=== PATIENT | female | born 1990 | race Caucasian/White ===

== ENCOUNTER → 2020-07-25 12:15 | Outpatient (BNVA) | payer OTHER, SELFPAY | PROVIDERS: PCP Internal Medicine; Visit Provider Dietitian, Registered | DX: E66.3 Overweight (principal); Z68.25 Body mass index [BMI] 25.0-25.9, adult | CPT/HCPCS: 97802 ==

== ENCOUNTER 2023-12-31 21:21 | Emergency (ER) | payer SELFPAY ==
--- NOTE | ~2023-12-31 | CT_ITS ---
EXAMINATION: CT ABDOMEN AND PELVIS WITH CONTRAST CLINICAL INFORMATION: Right upper quadrant pain. Biliary colic. COMPARISON: None available. TECHNIQUE: Multidetector volumetric images were obtained from the superior aspect of the liver through the pubic symphysis following administration 85 mL of Omnipaque 350 intravenous contrast. Sagittal and coronal reformatted images were obtained on the technologist's workstation. Oral contrast: No This CT examination was performed using dose optimization techniques as appropriate, variously including the following: *Automated exposure control *Adjustment of mA and/or kV according to patient size (this includes techniques or standardized protocols for targeted exams where dose is matched to indication/reason for exam; i.e. extremities or head) *Use of iterative reconstruction technique DLP: 622 mGy-cm FINDINGS: LUNG BASES: The visualized lung bases are unremarkable. LIVER, GALLBLADDER, AND BILIARY TREE: The liver is normal in size, shape, and attenuation. No focal hepatic lesion or biliary ductal dilatation is present. The gallbladder wall demonstrates mildly conspicuous submucosal in enhancement. No pericholecystic fluid collections noted. No cholelithiasis visualized. No biliary duct dilatation noted. PANCREAS: Unremarkable. SPLEEN: Incidental 6 mm rounded low-density focus within the inferior margin of the spleen which is overwhelmingly likely to be benign, possibly a hemangioma. ADRENAL GLANDS: Unremarkable. KIDNEYS AND URETERS: Single 6 mm x 4 mm nonobstructing calculus within the interpolar segment of the left kidney. No additional urolithiasis. Bilateral symmetric nephrographic enhancement. BLADDER: Unremarkable. GASTROINTESTINAL TRACT: Normal appearance of the appendix (series 7 image 25). Trace free intraperitoneal fluid within the pelvic cul-de-sac which is likely physiologic. No free intraperitoneal gas. Normal appearance of the stomach and duodenum. ABDOMINAL WALL: No significant hernia is appreciated. LYMPH NODES: Normal. VASCULAR: Unremarkable. PELVIC VISCERA: Intrauterine device is noted. No adnexal lesions visualized. Left gonadal vein measures 8 mm in diameter. A 2.5 cm diameter unilocular-appearing cyst is noted in the anterolateral aspect of the superior portion of the vagina and is suspicious for a Rach duct cyst. No adjacent inflammatory changes. OSSEOUS STRUCTURES: Unremarkable. CT/CT abdomen pelvis w IV con IMPRESSION: 1. Mildly conspicuous submucosal enhancement of the gallbladder wall. No cholelithiasis. No biliary duct dilatation. Findings are mildly suspicious for acute cholecystitis. Consider further evaluation with right upper quadrant ultrasound as clinically indicated. 2. Single 6 mm nonobstructing calculus within the interpolar segment of the left kidney. No additional urolithiasis. 3. Normal appendix. 4. Intrauterine device in place. 5. 2.5 cm unilocular-appearing cyst within the vagina suspicious for a Rach duct cyst. No adjacent inflammatory changes. 6. Ectatic left gonadal vein measuring 8 mm in diameter. In the correct clinical setting, findings could correlate with left-sided pelvic congestion syndrome. Electronically signed by: Get Ralph MD 01/01/2024 01:49 AM EDT
[2023-12-31 21:30] VITALS: BP 114/72; BP 116/78; PULSE 69; PULSE 76; RESP 18; TEMP 36.9; O2SAT 100; O2SAT 97; BMI 25.1
[2023-12-31 21:54] LABS: MANUAL DIFF FLAG NO
[2023-12-31 21:56] LABS: Basophils Percent Auto 0.6 % (0-2); Eosinophils Absolute Auto 0.2 X10*3/uL (0.0-0.4); Hematocrit 37.2 % (37.0-47.0); Hemoglobin 12.4 g/dl (12.0-16.0); Imm Gran Abs Auto 0.05 X10*3/uL (0.00-0.03); Imm Gran Pct Auto 0.8 % (0.0-0.4); Lymphocytes Percent Auto 30.5 % (20-40); Mean Corpuscular HGB Conc 33.3 g/dl (31.0-35.0); Mean Corpuscular Hemoglobin 28.7 pg (27.0-33.0); Mean Corpuscular Volume 86.1 fL (80.0-98.0); Mean Platelet Volume 10.1 fL (9.4-12.3); Monocytes Absolute Auto 0.4 X10*3/uL (0.1-1.2); Monocytes Percent Auto 6.1 % (2-11); Neutrophils Absolute Auto 3.8 x10*3/uL (2.0-8.3); Platelet Count 214 X10*3/uL (160-400); Red Blood Count 4.32 X10*6/uL (4.20-5.50); Red Cell Distribution Width 12.2 % (11.0-16.0); White Blood Count 6.4 X10*3/uL (4.8-10.8)
[2023-12-31 22:16] LABS: Alanine Aminotransferase 24 U/L (0-31); Albumin Level 3.7 g/dL (3.5-5.0); Alkaline Phosphatase 55 U/L (39-117); Anion Gap 8 (12-20); Aspartate Amino Transferase 17 U/L (5-31); Bilirubin Total 0.4 mg/dL (0.0-1.0); Blood Urea Nitrogen 13 mg/dL (9-16); C Reactive Protein 0.17 mg/dL (< or = 0.50); Calcium 8.3 mg/dL (8.4-10.2); Carbon Dioxide 27 mmol/L (22-29); Chloride 109 mmol/L (96-108); Estimated Glomerular Filt Rate > 60; Glucose Random 94 mg/dL (60-115); Lipase 24 U/L (8-78); Potassium 3.8 mmol/L (3.3-5.1); Sodium 140 mmol/L (135-145)
[2023-12-31 22:18] LABS: HCG Quantitative < 2 mIU/mL
[2024-01-01] MEDS: 0.9 % Sodium Chloride 1,000 ML 999 ML IV (00:41)
[2024-01-01] MEDS: iohexoL 350 MG/ML 100 ML INFUS..BTL 85 ML IV (00:52)
--- NOTE | 2024-01-01 01:31 | ED_ITS ---
HPI - Abdominal Pain General Chief Complaint: Abdominal Pain Stated Complaint: abd pain Time Seen by Provider: 12/31/23 23:52 Source: patient Limitations: no limitations History of Present Illness ED Provider: Liliya Garay PA-C Related Data Allergies Allergy/AdvReac Type Severity Reaction Status Date / Time No Known Allergies Allergy Verified 12/31/23 21:42 [facility] Social History Social History Alcohol intake: current Alcohol intake frequency: holidays/special occasions only Smoked in Last 30 Days: No Use of substances other than those prescribed or required for medical reasons: No Advance Directives: No Advance Directives Information Provided: No Patient : No Physical Exam ED Vital Signs: Vital Signs - 24 hr 12/31/23 21:30 Temperature 98.4 F Pulse Rate 69 Respiratory Rate 18 Blood Pressure 114/72 Pulse Oximetry 97 Oxygen Delivery Method Room Air BMI result Body Mass Index 25.1 Medical Decision Making Medical Decision Making MDM Narrative: No relevant chronic issues History: Per patient I have considered the following differential diagnoses: Biliary colic, cholecystitis, gastritis, GERD, pancreatitis Plan: Screening labs were obtained from triage. Given distribution of the patient's discomfort, I am considering biliary versus gastric versus pancreatic etiology as cause for symptoms. I definitely do not think she has cholecystitis, her abdominal exam at this time is completely benign, her LFTs are normal. Doubtful to be pancreatitis, her lipase is normal and again, abdominal exam is unremarkable. This could be poorly controlled GERD/gastritis. Given the transient pain and nausea, this could be biliary colic. We do not have the capability to obtain an ultrasound, therefore I am obtaining a CT scan. We will give IV fluid. Again, the patient is currently asymptomatic. I have independently reviewed the following tests: Labs: No leukocytosis, not anemic, no electrolyte abnormality, LFTs are normal, lipase elevated, not CT abdomen and pelvis: CT ABDOMEN AND PELVIS WITH CONTRAST CLINICAL INFORMATION: Right upper quadrant pain. Biliary colic. COMPARISON: None available. TECHNIQUE: Multidetector volumetric images were obtained from the superior aspect of the liver through the pubic symphysis following administration 85 mL of Omnipaque 350 intravenous contrast. Sagittal and coronal reformatted images were obtained on the technologist's workstation. Oral contrast: No This CT examination was performed using dose optimization techniques as appropriate, variously including the following: *Automated exposure control *Adjustment of mA and/or kV according to patient size (this includes techniques or standardized protocols for targeted exams where dose is matched to indication/reason for exam; i.e. extremities or head) *Use of iterative reconstruction technique DLP: 622 mGy-cm FINDINGS: LUNG BASES: The visualized lung bases are unremarkable. LIVER, GALLBLADDER, AND BILIARY TREE: The liver is normal in size, shape, and attenuation. No focal hepatic lesion or biliary ductal dilatation is present. The gallbladder wall demonstrates mildly conspicuous submucosal in enhancement. No pericholecystic fluid collections noted. No cholelithiasis visualized. No biliary duct dilatation noted. PANCREAS: Unremarkable. SPLEEN: Incidental 6 mm rounded low-density focus within the inferior margin of the spleen which is overwhelmingly likely to be benign, possibly a hemangioma. ADRENAL GLANDS: Unremarkable. KIDNEYS AND URETERS: Single 6 mm x 4 mm nonobstructing calculus within the interpolar segment of the left kidney. No additional urolithiasis. Bilateral symmetric nephrographic enhancement. BLADDER: Unremarkable. GASTROINTESTINAL TRACT: Normal appearance of the appendix (series 7 image 25). Trace free intraperitoneal fluid within the pelvic cul-de-sac which is likely physiologic. No free intraperitoneal gas. Normal appearance of the stomach and duodenum. ABDOMINAL WALL: No significant hernia is appreciated. LYMPH NODES: Normal. VASCULAR: Unremarkable. PELVIC VISCERA: Intrauterine device is noted. No adnexal lesions visualized. Left gonadal vein measures 8 mm in diameter. A 2.5 cm diameter unilocular-appearing cyst is noted in the anterolateral aspect of the superior portion of the vagina and is suspicious for a Rach duct cyst. No adjacent inflammatory changes. OSSEOUS STRUCTURES: Unremarkable. CT/CT abdomen pelvis w IV con IMPRESSION: 1. Mildly conspicuous submucosal enhancement of the gallbladder wall. No cholelithiasis. No biliary duct dilatation. Findings are mildly suspicious for acute cholecystitis. Consider further evaluation with right upper quadrant ultrasound as clinically indicated. 2. Single 6 mm nonobstructing calculus within the interpolar segment of the left kidney. No additional urolithiasis. 3. Normal appendix. 4. Intrauterine device in place. 5. 2.5 cm unilocular-appearing cyst within the vagina suspicious for a Rach duct cyst. No adjacent inflammatory changes. 6. Ectatic left gonadal vein measuring 8 mm in diameter. In the correct clinical setting, findings could correlate with left-sided pelvic congestion syndrome. Electronically signed by: Get Ralph MD 01/01/2024 01:49 AM EDT Lab Data 12/31/23 21:49 12/31/23 21:49 Labs: Lab Results 12/31/23 Range/Units 21:49 WBC 6.4 (4.8-10.8) X10*3/uL RBC 4.32 (4.20-5.50) X10*6/uL Hgb 12.4 (12.0-16.0) g/dl Hct 37.2 (37.0-47.0) % MCV 86.1 (80.0-98.0) fL MCH 28.7 (27.0-33.0) pg MCHC 33.3 (31.0-35.0) g/dl RDW 12.2 (11.0-16.0) % Plt Count 214 (160-400) X10*3/uL MPV 10.1 (9.4-12.3) fL Immature Gran % (Auto) 0.8 H (0.0-0.4) % Neut % (Auto) 59.0 (45-73) % Lymph % (Auto) 30.5 (20-40) % Clark % (Auto) 6.1 (2-11) % Eos % (Auto) 3.0 (0-4) % Baso % (Auto) 0.6 (0-2) % Lymph # (Auto) 2.0 (1.2-4.9) X10*3/uL Clark # (Auto) 0.4 (0.1-1.2) X10*3/uL Eos # (Auto) 0.2 (0.0-0.4) X10*3/uL Baso # (Auto) 0.0 (0.0-0.2) X10*3/uL Abs Immat Gran (auto) 0.05 H (0.00-0.03) X10*3/uL Absolute Neuts (auto) 3.8 (2.0-8.3) x10*3/uL Absolute Nucleated RBC 0.000 (0.0-0.012) X10*3/uL Nucleated RBC % (auto) 0.0 (0.0-0.2) /100WBC Sodium 140 (135-145) mmol/L Potassium 3.8 (3.3-5.1) mmol/L Chloride 109 H (96-108) mmol/L Carbon Dioxide 27 (22-29) mmol/L Anion Gap 8 L (12-20) BUN 13 (9-16) mg/dL Creatinine 0.88 (0.5-1.4) mg/dL Estim Creat Clear Calc 90.0 Estimated GFR > 60 Random Glucose 94 (60-115) mg/dL Calcium 8.3 L (8.4-10.2) mg/dL Total Bilirubin 0.4 (0.0-1.0) mg/dL AST 17 (5-31) U/L ALT 24 (0-31) U/L Alkaline Phosphatase 55 (39-117) U/L C-Reactive Protein 0.17 (< or = 0.50) mg/dL Total Protein 6.0 L (6.5-8.0) g/dL Albumin 3.7 (3.5-5.0) g/dL Lipase 24 (8-78) U/L Beta HCG, Quant < 2 mIU/mL Medications Administered Discontinued Medications Generic Name Dose Route Start Last Admin Trade Name Freq PRN Reason Stop Dose Admin Sodium Chloride 1,000 mls @ 999 mls/hr 01/01/24 00:30 01/01/24 00:41 Ns IV 01/01/24 01:30 999 mls/hr .Q1H1M AMADOR Administration Iohexol 85 ml 01/01/24 00:52 01/01/24 00:52 Iohexol 350 Mg/Ml 100 Ml Infus..Btl IV 01/01/24 00:53 85 ml ONCE ONE Administration Discharge Plan Discharge Clinical Impression: Abdominal pain Patient Disposition: Home, Self-Care Instructions: Abdominal Pain (ED), Constipation (ED), Gastroesophageal Reflux Disease (ED) Additional Instructions: All of your labs were normal. The CT scan did not reveal an acute infection. You were incidentally found to have a stone in the left kidney. Your symptoms could be attributed to constipation and/or poorly controlled acid reflux. See home care instructions. For the constipation, you could start using an [id number] stool softener such as Colace, 1 to 2 times a day. You could also use [id number] MiraLax, 1 to 2 times a day, until you begin having normal bowel movements. In regard to the GERD, some common triggers are acidic food, spicy food, eating large quantities of food at 1 time, caffeine, alcohol, anything carbonated, mint. Follow up with your primary care provider as needed. Print Language: Telugu
[2024-01-01 02:35] VITALS: BP 111/73; PULSE 73; RESP 18; TEMP 37.2; O2SAT 95
== END 2024-01-01 02:36 | disposition home or self-care (01) ==
PROVIDERS: Emergency Provider Emergency Medicine Emergency Medical Services
DX: R10.9 Unspecified abdominal pain (principal); R11.0 Nausea; N20.0 Calculus of kidney
CPT/HCPCS: 36415; 74177; 80053; 83690; 84702; 85025; 86140; 99284; Q9967